=== PATIENT | female | born 1980 | race Caucasian/White ===

== ENCOUNTER 2021-06-08 19:26 | Outpatient (REF) | payer SELFPAY ==
[2021-06-08 19:56] LABS: COVID-19 Test Negative (Negative)
== END 2021-06-08 19:27 | disposition home or self-care (01) ==
LOC: HO.LAB 19:26
PROVIDERS: Referring Provider Internal Medicine; Visit Provider Internal Medicine
DX: Z20.822 Contact with and (suspected) exposure to COVID-19 (principal)
CPT/HCPCS: 87635; C9803